=== PATIENT | male | born 1990 | race Caucasian/White ===

== ENCOUNTER 2021-04-01 15:41 | Emergency (ER) | payer OTHER ==
[~2021-04-01] VITALS: Ht 185.4 cm; Wt 71.0 kg
[2021-04-01 16:17] LABS: MICROSCOPIC INDICATED
[2021-04-01 16:29] LABS: BASOPHILS % (AUTO) 1 % (0-1); EOSINOPHILS % (AUTO) 1 % (1-7); LYMPHOCYTES % (AUTO) 22 % (22-44); MEAN CORPUSCULAR HEMOGLOBIN 31.8 pg (27.5-34.5); MEAN CORPUSCULAR HGB CONC 35.3 g/dL (33.2-36.2); MEAN PLATELET VOLUME 7.8 fL (7.4-10.4); MONOCYTES % (AUTO) 8 % (2-9); NEUTROPHILS % (AUTO) 68 % (42-75); PLATELET COUNT 245 x10^3/uL (130-400); RED BLOOD COUNT 4.89 x10^6/uL (4.38-5.82); RED CELL DISTRIBUTION WIDTH 12.6 % (9.4-14.8)
[2021-04-01 16:41] LABS: ALANINE AMINOTRANSFERASE 28 U/L (12-78); ALBUMIN 4.5 g/dL (3.4-5.0); ANION GAP 8 mmol/L (5-15); CALCIUM 9.2 mg/dL (8.5-10.1); CHLORIDE 107 mmol/L (98-107)
[2021-04-01 16:44] LABS: ALKALINE PHOSPHATASE 106 U/L (45-117); CREATININE 1.02 mg/dL (0.7-1.3); TOTAL PROTEIN 8.4 g/dL (6.4-8.2)
--- NOTE | 2021-04-01 17:24 | NUR ---
Pt to room from lobby at this time.
--- NOTE | 2021-04-01 20:21 | NUR ---
DR. REYEZ AT BEDSIDE TO DISCUSS POC.
[2021-04-01 20:56] VITALS: BP 127/67
== END 2021-04-01 21:07 | disposition home or self-care (01) ==
LOC: ED 20:53
DX: R10.84 Generalized abdominal pain (principal); R19.7 Diarrhea, unspecified
CPT/HCPCS: 36415; 76700; 80053; 81001; 83690; 85025; 99284